=== PATIENT | male | born 2000 | race Two or more races ===

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

== ENCOUNTER 2020-07-25 08:19 | Emergency (ER) | payer OTHER | END 2020-07-25 09:08 | disposition home or self-care (01) | LOC: NAV ERS 08:19 | DX: S46.811A Strain of other muscles, fascia and tendons at shoulder and upper arm level, right arm, initial encounter (principal); S46.011A Strain of muscle(s) and tendon(s) of the rotator cuff of right shoulder, initial encounter; X50.0XXA Overexertion from strenuous movement or load, initial encounter | CPT/HCPCS: 99283 ==

== ENCOUNTER 2020-11-08 11:29 | Emergency (ER) | payer OTHER, SELFPAY ==
[2020-11-08] MEDS ORDERED: TETANUS, DIPHTHERIA TOX,ADULT (TDVAX) 0.5 ML VIAL IM ONE (12:02)
[2020-11-08] MEDS ORDERED: Boostrix 0.5 ML (Tdap) VIAL ONE (12:04)
[2020-11-08] MEDS ORDERED: Ibuprofen 800 MG TAB ONE (12:19)
== END 2020-11-08 12:35 | disposition home or self-care (01) ==
LOC: NAV ERS 11:29
DX: S61.211A Laceration without foreign body of left index finger without damage to nail, initial encounter (principal); I10 Essential (primary) hypertension; Z23 Encounter for immunization; W45.8XXA Other foreign body or object entering through skin, initial encounter
CPT/HCPCS: 90471; 90714; 90715

== ENCOUNTER 2021-09-24 17:29 | Emergency (ER) | payer OTHER, SELFPAY ==
[2021-09-24] MEDS ORDERED: Lidocaine 1% (PF) 30 ML VIAL ONE (17:47)
[2021-09-24] MEDS ORDERED: Bacitracin 1 PK ONE (18:19)
== END 2021-09-24 18:40 | disposition home or self-care (01) ==
LOC: NAV ERS 17:29
DX: S61.512A Laceration without foreign body of left wrist, initial encounter (principal); F17.210 Nicotine dependence, cigarettes, uncomplicated; W26.8XXA Contact with other sharp object(s), not elsewhere classified, initial encounter
CPT/HCPCS: 12002; J2001